=== PATIENT | male | born 1955 | race Caucasian/White ===

== ENCOUNTER 2016-11-20 13:48 | Inpatient (IN) | payer OTHER, BC ==
[2016-12-07] MEDS ORDERED: CREON 121 CAP PO (06:05)
[2016-12-07] MEDS ORDERED: CARAFATE DPS1 GM PO (06:05)
[2016-12-07] MEDS ORDERED: MYLICON DPS80 MG PO (06:06)
[2016-12-07] MEDS ORDERED: NEURONTIN DPS300 MG PO (06:06)
[2016-12-07] MEDS ORDERED: IMODIUM DPS2 MG PO (06:06)
[2016-12-07] MEDS ORDERED: LOVENOX DP60 MG/0.6 SQ (06:06)
[2016-12-07] MEDS ORDERED: PEPCID DPS20 MG PO (06:06)
[2016-12-07] MEDS ORDERED: BACITRACIN--O.0.9 GM TP (06:07)
[2016-12-07] MEDS ORDERED: RELISTOR12 MG/0.6 SQ (06:07)
[2016-12-07] MEDS ORDERED: DURAGESIC1 EAC2 TP (06:08)
[2016-12-07] MEDS ORDERED: PROTONIX IV40 MG IV (06:09)
[2016-12-07] MEDS ORDERED: NORMAL SALINE FL5 ML IV (06:09)
[2016-12-07] MEDS ORDERED: TPN IV (06:11)
[2016-12-07] MEDS ORDERED: BENADRYL-DPS25 MG PO (06:12)
[2016-12-07] MEDS ORDERED: MAALOX DPS30 ML PO (06:13)
[2016-12-07] MEDS ORDERED: PERCOCET 10 DPS1 TAB PO (06:15)
[2016-12-07] MEDS ORDERED: ULTRAM DPS50 MG PO (06:15)
[2016-12-07] MEDS ORDERED: TYLENOL DPS325 MG PO (06:15)
[2016-12-07] MEDS ORDERED: VALIUM-DPS2 MG PO (06:16)
[2016-12-07] MEDS ORDERED: MORPHINE P30 MG/30 M IV (06:16)
[2016-12-07] MEDS ORDERED: NALOXONE H0.4 MG/1 M IV (06:17)
[2016-12-07] MEDS ORDERED: CARAFATE1 GM PO (06:20)
== END 2016-12-05 17:00 | disposition short-term general hospital (02) | DRG 41 ==
DX: G89.4 Chronic pain syndrome (principal); I82.432 Acute embolism and thrombosis of left popliteal vein; E44.0 Moderate protein-calorie malnutrition; K25.9 Gastric ulcer, unspecified as acute or chronic, without hemorrhage or perforation; K56.7 Ileus, unspecified; K91.1 Postgastric surgery syndromes; J44.9 Chronic obstructive pulmonary disease, unspecified; I10 Essential (primary) hypertension; K57.90 Diverticulosis of intestine, part unspecified, without perforation or abscess without bleeding; E78.5 Hyperlipidemia, unspecified; E74.39 Other disorders of intestinal carbohydrate absorption; Z87.891 Personal history of nicotine dependence; Z85.07 Personal history of malignant neoplasm of pancreas

== ENCOUNTER 2017-01-02 23:46 | Inpatient (IN) | payer BC ==
[~2017-01-02] VITALS: Ht 167.6 cm; Wt 63.0 kg
[~2017-01-02 23:46] MED LIST: BACITRACIN--O.0.9 GM TP; BENADRYL-DPS25 MG PO; CARAFATE DPS1 GM PO; CARAFATE1 GM PO; CREON 121 CAP PO; DURAGESIC1 EAC2 TP; IMODIUM DPS2 MG PO; LOVENOX DP60 MG/0.6 SQ; MAALOX DPS30 ML PO; MORPHINE P30 MG/30 M IV; MYLICON DPS80 MG PO; NALOXONE H0.4 MG/1 M IV; NEURONTIN DPS300 MG PO; NORMAL SALINE FL5 ML IV; PEPCID DPS20 MG PO; PERCOCET 10 DPS1 TAB PO; PROTONIX IV40 MG IV; RELISTOR12 MG/0.6 SQ; TPN IV; TYLENOL DPS325 MG PO; ULTRAM DPS50 MG PO; VALIUM-DPS2 MG PO
--- NOTE | 2017-01-03 09:58 | HP ---
ADMIT: 01/03/2017 RM/LOC: [address] [facility] MR#: [id number] [address] [id number] [place] [address] History and Physical SEX: M AGE: 61 : 1955 DATE OF SERVICE: CHIEF COMPLAINT: Cardiac arrest. HISTORY OF PRESENT ILLNESS: The patient is a 61-year-old gentleman with an extensive pancreatic cancer history, initially diagnosed nearly 2 years ago, had good response to chemotherapy, has had local recurrence, recently diagnosed in the last month. He was planning on actually getting some prior chemotherapy next week through the [facility]. The patient has had severe intractable pain. Has had various amounts of different narcotics, decreasing amounts lately, on morphine. Recently, had a pain pump placed in November. Since that time, has had severe back pain associated with it, really has not responded well to it. Either way, today, it sounds like he was taking his normal amount of pain meds, just has not felt well. He had rigors and fevers greater than 101 all weak. No new cough or shortness of breath otherwise. Tonight, he went to the restroom, had a bowel movement, subsequently passed out it sounds like. CPR on the field, epinephrine, and repeat CPR here. Ultimately, had returned a spontaneous circulation. On the ventilator, has not made any purposeful movement since that time according to or ER staff. The patient really prior to this had been losing a lot of weight. Severe GI intolerance to food with some dumping syndrome as well as severe abdominal pain, was on TPN via port, gets this at night. PAST MEDICAL HISTORY: 1. Pancreatic cancer. 2. History of hyperlipidemia. 3. History of alcohol abuse. 4. Diverticulitis. 5. COPD. 6. Hypertension. PAST SURGICAL HISTORY: Inguinal hernia repair. He had a Whipple procedure in 2016. MEDICATIONS: Include: 1. Fentanyl pain patch 12 mcg recently started, both long-acting and short- acting. 2. Oral morphine, pain pump with morphine. Otherwise, final medication list still pending. 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 , with his 2nd marriage a little over 2 years ago. is at bedside. Former smoker. REVIEW OF SYSTEMS: Unobtainable due to intubation. PHYSICAL EXAMINATION: VITAL SIGNS: Heart rate 133, blood pressure 94/61, O2 saturation 97% on 45% FiO2 on the ventilator. He is tachypneic in the upper 20s currently. ADMIT: 01/03/2017 RM/LOC: [address] [facility] MR#: [id number] [address] [place] [id number] [address]SE [address] [place], [place] [id number] History and Physical SEX: M AGE: 61 : 1955 GENERAL: The patient is on the ventilator. He does not withdraw or follow commands. HEENT: Pupils are small, pinpoint, minimally reactive bilaterally. No icterus. ET tube at midline. OG tube. Dry mucous membranes. NECK: No lymphadenopathy. Trachea midline. LUNGS: Clear to auscultation bilaterally. No wheezes, rales, or rhonchi. Symmetric thoracic excursion. HEART: Tachycardic. No murmurs, rubs, or gallops. ABDOMEN: Soft, nontender, nondistended. Bowel sounds present. He has his right lower quadrant pain pump. No surrounding erythema, well-healed incision site. He has a right-sided inguinal hernia. EXTREMITIES: No cyanosis, clubbing, or edema. MUSCULOSKELETAL: Does not move extremities. NEUROLOGICAL: Does not withdraw to voice or deep stimuli at all. Equivocal Babinski's bilaterally. He occasionally has some jerking movements when stimulated with eyes wide open, questionable seizure-like activity lasts for fleeting 4 seconds or so and then spontaneously completely resolves. LABORATORY AND X-RAY DATA: His ABG at admit was 6.94, current is pending. PCO2 is 66, PO2 is 197. Sodium 136, potassium 4.1, AST is 301, alk phos 668, creatinine 0.9, BUN is 23, INR is 1.7. White count 14.5, hemoglobin 9.3, platelets 291, procalcitonin is 0.4, lactic acid is 8. UA is negative. A chest x-ray, reviewed. He has his right-sided port. He has ET tube at reasonable place. He has no infiltrate. ASSESSMENT: 1. Pancreatic cancer. 2. Acute cardiac arrest. 3. Respiratory failure. 4. Intractable pain. 5. Recurrent fevers. 6. Severe malnutrition. PLAN: At this point in time, I had a very long discussion with at bedside regarding overall goals of care given his current findings. They are agreeable to DNR status should he worsen. Otherwise, in the meantime, Supportive Care will try to see how he does in the next 12 to 24 hours. He really is not making much purposeful movements. I am concerned for hypoxic brain injury. We will put him on some Keppra as he is having some jerking- like movements, possible early seizure-like activity. Keep him on some propofol drip and try to wean it over the next 12 hours to see how he does. ADMIT: 01/03/2017 RM/LOC: [address] [facility] MR#: [id number] [address] [place] [id number] [place] [address] History and Physical SEX: M AGE: 61 : 1955 We will put him on a Fentanyl drip for pain control. Turn off his pain pump and try to maximize the respiratory status on the ventilator. He is overbreathing on the vent, which is encouraging at this point in time. We will also restart TPN likely in the next 12 to 24 hours if he looks like he is improving. In regard to his recurrent fevers, we will give him some Zosyn followed with vancomycin. No clear source. Given his severe pain where his pain pump is inserted in his back and severe back pain which is new for him and now with fevers, concern will be for abscess. If he stabilizes, we will pursue other imaging and CT scan at that time. Family is overall agreement to plan. Huber Painter MD/ david JOB #: [id number] CC: Huber Painter, Attending Physician Huber Painter, Family Physician Stef Almazan MD Resident
--- NOTE | 2017-01-08 09:05 | DS ---
ADMIT: 01/03/2017 RM/LOC: [address] [facility] MR#: [id number] [address] [address] [place] [address] Discharge Summary SEX: M AGE: 61 : 1955 ADMISSION DATE: 01/03/2017 DISCHARGE DATE: 01/05/2017 FINAL DIAGNOSES: 1. Cardiac arrest. 2. Acute hypoxic respiratory failure. 3. Pancreatic cancer. 4. Intractable pain. 5. COPD (coronary artery disease). 6. Hypertension. 7. Severe malnutrition. 8. Gram negative helder septic shock. REASON FOR ADMISSION: The patient is a 61-year-old gentleman, who had a cardiac arrest witnessed at home. Resuscitation in the field. Brought in through the ER. Ultimately to the ICU. HOSPITAL COURSE: The patient was admitted. Was on the ventilator at admit, critically ill in the ICU. Pressors were used. Volume resuscitation. Ultimately blood pressure improved some. Imaging of his head and back for occult abscess was negative. He, from a mental standpoint, really did not have any improvement from his mental status. Was not making much improvement overall. Long discussions were had with family including regarding overall goals of care. Ultimately goals of comfort and compassionate extubation was pursued. This was able to be arranged on the after much discussion with family. Mother and at bedside. Patient was comfortable at time of expiration at 3:30 p.m. Huber Painter MD/ kaitlin JOB #: [id number] CC: Huber Painter MD, Attending Physician Huber Painter MD, Family Physician Stef Almazan MD [facility] [employer] Department of Internal Medicine [id number] [facility] [id number]
--- NOTE | 2017-01-13 07:17 | ER ---
ADMIT: 01/03/2017 RM/LOC: [address] [facility] MR#: [id number] [address] [id number] [place] [address] Emergency Room Report SEX: M AGE: 61 : 1955 DATE: 01/02/2017 CHIEF COMPLAINT: Code blue in the field. HISTORY OF PRESENT ILLNESS: The patient is a 61-year-old male with a diagnosis of pancreatic cancer, [facility] is [facility] and from . The patient had a history of pancreatic cancer with Whipple approximately a year ago. From their understanding, he was cancer-free but had a workup approximately 3 weeks ago when a recurrence of his pancreatic cancer was found. Within the past couple of weeks, he has been started on hospice care at home. reports that the patient has not been feeling well as of late and they believe he has been having some intermittent fevers and shaking chills. This evening, his hospice nurse had been there and she had left to go home when the patient felt like he needed to go to the bathroom. He went to the bathroom and felt very lightheaded like he was nearly going to faint. The called the hospice nurse to return, and by the time the hospice nurse had returned, the patient had actually collapsed in the bathroom and nurse determined she could not feel a pulse and started CPR. 911 was called. When they arrived, they found the patient was in PEA and delivered first round of epi and got return of pulse. They began transporting the patient to the Emergency Department, and shortly before arrival here, they state that they again lost his pulse, gave a repeat dose of 1 mg epi and got return of pulse at that time. REVIEW OF SYSTEMS: Unable to obtain an accurate review of systems at this time. PAST MEDICAL HISTORY: Pancreatic cancer, COPD, hyperlipidemia, diverticulosis. Prior alcohol abuse, but has been sober for many years. Hypertension, hyperlipidemia. PAST SURGICAL HISTORY: Inguinal hernia repair, Whipple procedure. MEDICATIONS: Do not have an up-to-date medication list at this time. ALLERGIES: REVIEW OF OUR RECORDS SHOW HE DOES NOT HAVE ANY ALLERGIES SEEN. SOCIAL HISTORY: He is , lives with his , and is, from my understanding, currently in hospice care system at home. PHYSICAL EXAMINATION: GENERAL: The patient is intubated, being bagged when he arrives. HEENT: He does have pupils that are approximately 3 mm bilaterally and not reactive. The patient does not blink, will not track. LUNGS: He is having some respiratory effort, but it is not regular. HEART: Tachycardic. LUNGS: Clear to auscultation. He does have a port in his right upper chest and has a pain pump in his right lower quadrant of his abdomen. ABDOMEN: Otherwise soft. ADMIT: 01/03/2017 RM/LOC: [address] [facility] MR#: [id number] [address] [place] [id number] [address] ROSE [address] [place] [address] Emergency Room Report SEX: M AGE: 61 : 1955 SKIN: Slightly diaphoretic, but no rashes or skin lesions are seen. There is no ecchymosis. EXTREMITIES: He does have pulses in all 4 extremities. Has 1+ pedal edema in bilateral lower extremities. LABORATORY AND X-RAY DATA: White count of 14.5, hemoglobin of 9.3, platelets 291, sodium 138, potassium 4.2, carbon dioxide 14, BUN 23, glucose 205, AST 301, ALT 215. Cardiac enzymes are pending. INR is 1.77. ABG when he is intubated being bagged is a pH 6.94, pCO2 of 66.5, PO2 of 197. Lactic acid is 8.5, procalcitonin 0.38. Urinalysis shows 1+ protein, 2.0 urobilinogen. EKG shows sinus tachycardia, rate of 127. Chest x-ray shows the patient is intubated and has an OG tube in place. There might be slightly increased edema in the lung russo. EMERGENCY DEPARTMENT COURSE: The patient arrives. He does have a pulse but is not having any purposeful movement. On history taken from , it sounds like he has had a slight increase in his pain pump recently but continues to take his oral morphine and is also on fentanyl patch. I did give Narcan 0.1 mg IV two different doses and it seems like it slightly increased his respiratory rate, but no other change in his level of alertness or pupillary response or tracking was seen. We went ahead and did our sepsis routine on the patient and he did screen positive for severe sepsis. We began our 30 mL/kg fluid resuscitation on the patient and he was given Zosyn IV in the Emergency Department. I had a long conversation with the patient's about his code status and she has discussed the code status with her son since I have had that conversation. She is still not giving me a definitive answer on her wishes if he were to have another situation where he lost his pulse or were to arrest. I have contacted Dr. Painter as the patient normally sees the PA and we will be admitting the patient to the ICU with the following diagnosis: 1. Pancreatic cancer. 2. Post code with return of spontaneous circulation. 3. Severe sepsis. 4. Chronic pain. 5. Respiratory acidosis. The patient is admitted in critical condition and 1 hour critical care time was spent on this patient. Dave Monet MD/ corinal JOB #: [id number] CC: Huber Painter MD, Attending Physician Huber Painter MD, Family Physician
== END 2017-01-05 15:30 | disposition expired | DRG 871 ==
LOC: ER 23:46 → 3ICU 01-03 01:03
PROVIDERS: ADMIT Internal Medicine
PROC: 5A1945Z Respiratory Ventilation, 24-96 Consecutive Hours (ICD-10-PCS; principal; 2017-01-03)
PROC: 0B938ZX Drainage of Right Main Bronchus, Via Natural or Artificial Opening Endoscopic, Diagnostic (ICD-10-PCS; 2017-01-03)
DX: A41.50 Gram-negative sepsis, unspecified (principal); J96.01 Acute respiratory failure with hypoxia; Z51.5 Encounter for palliative care; I46.9 Cardiac arrest, cause unspecified; E43 Unspecified severe protein-calorie malnutrition; G93.1 Anoxic brain damage, not elsewhere classified; K91.1 Postgastric surgery syndromes; E87.2 Acidosis; C25.9 Malignant neoplasm of pancreas, unspecified; R65.20 Severe sepsis without septic shock; J44.9 Chronic obstructive pulmonary disease, unspecified; E78.5 Hyperlipidemia, unspecified; K57.90 Diverticulosis of intestine, part unspecified, without perforation or abscess without bleeding; I10 Essential (primary) hypertension; G89.3 Neoplasm related pain (acute) (chronic); Z87.891 Personal history of nicotine dependence